=== PATIENT | female | born 1970 | race Caucasian/White ===

== ENCOUNTER 2016-09-06 15:47 | Emergency (ER) | payer OTHER ==
[2016-09-06 16:08] VITALS: BP 133/77; PULSE 70; RESP 16; TEMP 98.1; O2SAT 97
--- NOTE | 2016-09-06 16:34 | UCPHY ---
H & P Time Seen by Provider: 09/06/16 16:31 Patient Type: New HPI/ROS: HPI: 45-year-old female presents to urgent care with chief concern right knee pain. Onset this morning when she slipped on the ice resulting in her right leg extending laterally and right knee eversion. Reports pain to the superior and lateral aspect of the right knee with pain with weight-bearing resulting in a limp. Denies weakness, numbness, or tingling of the right lower extremity. No previous injury of the right knee. Did not fall or incur other injury at time of incident. No right hip, right leg, right ankle or foot pain ROS: Constitutional: no fever, chills, fatigue Cardiac: No cool, dusky extremity GI: no abdominal pain, vomiting, or diahrrea Musculoskeletal: See HPI Skin: no rashes, abrasions, lacerations Neuro: no numbness, tingling, or weakness. no decreased sensation. Smoking Status: Never smoked Physical Exam: Vital signs stable, reviewed by me General: Awake, alert, calm, cooperative. No acute distress. Head: Normalocephalic. Atraumatic. EENT: PERRLA. EOMI. Neck: Supple, nontender. No midline tenderness, full ROM. Respiratory: Breathing unlabored. CV: Chest nontender, atraumatic. Distal pulses 2+. Brisk cap refill all extremities. GI: Deferred Neuro: Alert. Oriented x 3. Sensation intact all extremities. Skin: Skin warm, dry, intact. No ecchymosis, abrasions, or lacerations. Extremities: No discomfort to palpation of the right hip, leg, ankle or foot. Full ROM. No deformity, ecchymosis, erythema, abrasions or lacerations noted. There is discomfort to palpation of the superolateral aspect of the right knee. Mild swelling. . Full extension and flexion. Negative valgus and varus stress. Positive Nu. Negative AP drawer. Negative ballotment. Constitutional: Initial Vital Signs Temperature (C) 36.7 C 09/06/16 16:05 Heart Rate 70 09/06/16 16:05 Respiratory Rate 16 09/06/16 16:05 Blood Pressure 133/77 H 09/06/16 16:05 O2 Sat (%) 97 09/06/16 16:05 O2 Delivery Mode Room Air Allergies/Adverse Reactions: No Known Allergies Allergy (Unverified 09/06/16 16:05) Home Medications: Medication Instructions Recorded NK [No Known Home Meds] 09/06/16 Medical Decision Making - Diagnostics Imaging: Knee x-ray shows nothing acute, final report pending at time this dictation ED Course/Re-evaluation: Placed in a brace and instructed in use of crutches, neurovascular status intact after application Differential Diagnosis: Differential diagnosis includes but is not limited to ligament injury, meniscal injury, bursitis, dislocation, fracture, sprain Departure - Departure Disposition: Home, Routine, Self-Care Clinical Impression: Pain in lateral portion of right knee Condition: Good Instructions: Knee Sprain (ED) Additional Instructions: Plan: ice every 1-2 hours for 20 minutes for the the next 2-3 days You may use 600 mg of ibuprofen every 6 hours for fever, inflammation, or pain. Always take ibuprofen with food and stay well hydrated while taking. Do not exceed the maximum allowable dose in a 24 hour period which is 2400 mg. Use brace while up and about. Use crutches for weight-bearing as tolerated. If it hurts, do not do it. Follow up with orthopedist next week--When you call to schedule appointment, please let the office know you are an "ER follow up" appointment" Referrals: Letty Castanon MD [Primary Care Provider] - As per Instructions Laisha Sahni MD [Medical Doctor] - As per Instructions - PQRS PQRS Measurement: Not applicable
--- NOTE | 2016-09-06 16:50 | DX ---
Right knee 5 views History: twisting injury, fell on ice. Findings: Osteophytes of mild to moderate size are largest adjacent to the patellofemoral joint. Trac e joint effusion is present. Lateral patellar retinaculum is partially ossified, compatible with prev ious trauma. Subarticular sclerosis is found in the patella. No fracture. Impression: Trace effusion in right knee joint. No fracture.
== END 2016-09-06 17:03 | disposition home or self-care (01) ==
LOC: CED 15:47
DX: M25.561 Pain in right knee (principal); W00.0XXA Fall on same level due to ice and snow, initial encounter; Y92.019 Unspecified place in single-family (private) house as the place of occurrence of the external cause; Y99.8 Other external cause status
CPT/HCPCS: 73564-PO; 99203-PO; G0463-PO; L1830